=== PATIENT | male | born 1990 | race Two or more races ===

== ENCOUNTER 2024-06-22 17:27 | Emergency (ER) | payer OTHER ==
[~2024-06-22] VITALS: Ht 172.7 cm; Wt 71.7 kg
[2024-06-22] MEDS ORDERED: LIDOCAINE HCL 1% 10ML VIAL PERCUT ONE (18:30)
[2024-06-22] MEDS ORDERED: KETOROLAC TROMETHAMINE 60 MG VIAL IM ONE (18:30)
[2024-06-22] MEDS ORDERED: CEFTRIAXONE SODIUM 1,000 MG VIAL IM ONE (18:30)
[2024-06-22] MEDS ORDERED: PEPCID AC20 MG PO (19:17)
[2024-06-22] MEDS ORDERED: CEPHALEXIN750 MG PO (19:17)
== END 2024-06-22 19:22 | disposition home or self-care (01) ==
LOC: ER 17:29
DX: S91.312A Laceration without foreign body, left foot, initial encounter (principal); W25.XXXA Contact with sharp glass, initial encounter; Y93.89 Activity, other specified; Y92.89 Other specified places as the place of occurrence of the external cause; Y99.8 Other external cause status
CPT/HCPCS: 12002; 96372; 99282; J0696; J1885